=== PATIENT | male | born 1990 | race Caucasian/White ===

== ENCOUNTER 2018-12-25 23:38 | Emergency (ER) | payer SELFPAY ==
[~2018-12-25] VITALS: Ht 172.7 cm; Wt 77.8 kg
[~2018-12-25 23:38] MED LIST: IBUP800T48 PO; OFLO5DRO7 BOTH EARS
[2018-12-25 23:41] VITALS: BP 134/71; PULSE 73; RESP 15; Ht 172.7 cm; Wt 77.8 kg
[2018-12-26] MEDS ORDERED: IBUPROFEN 800 MG TAB PO ONE (01:00)
== END 2018-12-26 01:15 | disposition home or self-care (01) ==
LOC: FTE 23:38
DX: H66.003 Acute suppurative otitis media without spontaneous rupture of ear drum, bilateral (principal); G44.201 Tension-type headache, unspecified, intractable
CPT/HCPCS: 99283